=== PATIENT | male | born 1950 | race Caucasian/White ===

== ENCOUNTER 2021-01-04 16:57 | Inpatient (IN) | payer MEDICARE, SELFPAY ==
--- NOTE | ~2021-01-04 | XR_ITS ---
EXAMINATION: XR chest 1V portable EXAM DATE: 01/05/2021 09:34 INDICATION: History pneumonia. Shortness of breath, weakness, cough. TECHNIQUE: Portable AP frontal chest x-ray was obtained. There is no prior study for comparison. FINDINGS: There is confluent segmental right middle lobe consolidation, probably pneumonia. Can't exc lude underlying cancer, follow-up is indicated to resolution. There is left midlung zone granuloma. There is a right-sided PICC line which is kinked, buckling into the internal jugular vein, but with t ips remaining inferiorly at the mid SVC level. There is no pneumothorax suspected. There are no pleural effusions. Cardiomediastinal silhouette is n ormal. There are no osseous abnormalities identified. IMPRESSION: 1. Abnormally positioned right-sided PICC line. 2. Segmental right middle lobe consolidation, probably pneumonia. Follow-up to resolution to exclude underlying cancer. Reviewed, dictated and finalized at location A. L DETAILER
[2021-01-04 16:57] VITALS: BMI 31.4
[2021-01-04 17:00] VITALS: BP 118/78; PULSE 109; PULSE 110; RESP 18; TEMP 37.1; O2SAT 93
--- NOTE | 2021-01-04 18:22 | ADMGEN ---
This patient, FEI STEPHENS, was admitted to 2nd Floor Room 205-2. Patient/family oriented to hospital policies and general routines including ID bracelet, bed and alarms, visiting hours due to covid pandemic, pain management, procedures, bathroom and other care routines, personal items, smoking policy, room service/diet, and visiting hours. Information on how to activate the Rapid Response Team has been discussed. Patient/Family are encouraged to report perceived risks to care and to ask questions if they do not understand what they are told or what they should do.
--- NOTE | 2021-01-04 20:33 | PM.IMHP ---
H&P: HPI History of Present Illness Date/Time: 01/04/21 20:33 Chief Complaint: Weakness Narrative: 70-year-old white male presents to our hospital for generalized weakness after being intubated at [facility] for 2 weeks. He presented there with acute hypoxic respiratory failure, rapid atrial fibrillation, severe sepsis and bilateral pneumonia. Review of Systems Review of Systems: Patient complains of generalized weakness in all 4 extremities. He says he does not know why he is has so much weakness other than he has been on a ventilator for 2 weeks after having severe pneumonia. At this time he denies any significant pain. He just has difficulty with range of motion in all extremities. All systems reviewed & are unremarkable except as noted in HPI and below PMFSH Past Medical History Medical History (Updated 01/04/21 @ 21:16 by Dinesh Izaguirre MD) Paroxysmal atrial fibrillation Rheumatoid arthritis Surgical History Surgical History (Updated 01/04/21 @ 20:38 by Dinesh Izaguirre MD) H/O arthroscopic knee surgery Family History Family History Father Arthritis Heart attack Social History Social History Smoking status: Never smoker Second hand tobacco smoke exposure: No Alcohol intake: never Substance use: never Spiritual care concerns: No Meds Home Medications and Allergies Home Medications Medication Instructions Recorded Confirmed Type acetaminophen [Tylenol] 650 mg PO Q4H PRN 01/04/21 01/04/21 History artificial tears ointment [Refresh 1 applic EACH EYE HS 01/04/21 01/04/21 History P.M.] carboxymethylcellulose sodium 2 drp EACH EYE QID PRN 01/04/21 01/04/21 History dextromethorphan-guaifenesin 10 ml PO QID PRN 01/04/21 01/04/21 History [Robitussin-DM] docusate sodium [Colace] 100 mg PO BID 01/04/21 01/04/21 History enoxaparin 40 mg SUBCUT DAILY 01/04/21 01/04/21 History folic acid 1 mg PO DAILY 01/04/21 01/04/21 History gabapentin 300 mg PO HS 01/04/21 01/04/21 History hydrocodone-acetaminophen [Trent] 1 tablet PO QID PRN 01/04/21 01/04/21 History ipratropium-albuterol 3 ml INHALATION Q4H PRN 01/04/21 01/04/21 History magnesium oxide 400 mg PO TIDWMEAL 01/04/21 01/04/21 History mirtazapine 15 mg PO HS 01/04/21 01/04/21 History pantoprazole 40 mg PO QAM 01/04/21 01/04/21 History polyethylene glycol 3350 [Miralax] 17 g PO BID 01/04/21 01/04/21 History prednisone [Deltasone] 5 mg PO DAILY 01/04/21 01/04/21 History tramadol 50 mg PO DAILY 01/04/21 01/04/21 History Allergies Allergy/AdvReac Type Severity Reaction Status Date / Time sulfadiazine Allergy Vomiting Verified 01/04/21 17:10 Vital Signs Vital Signs - 24 hr 01/04/21 17:00 Temperature 37.1 C Pulse Rate 109 H Respiratory Rate 18 Blood Pressure 118/78 Pulse Oximetry 93 Exam Const: General: comfortable and no acute distress Eyes: General: appearance normal, both eyes and all related structures Sclera: sclerae normal Pupils: Equal, round and reactive pupils present EOM: EOMs intact bilaterally Neck: Neck: supple and no JVD Resp: Effort & Inspection: normal respiratory effort Auscultation: clear to auscultation bilaterally Cardio: Rate: regular rate Rhythm: regular rhythm Heart sounds: no murmurs GI: Inspection: non-distended GI Palp: Yes Soft to palpation, No Tenderness to palpation present (GI) and No Guarding due to palpation present (GI) Auscultation: normal bowel sounds Back/Spine/Pelvis: Cervical Spine: cervical ROM normal Skin: General skin exam: normal color and no rashes or lesions noted Neuro: Cognition (Neuro): normal cognition Speech: normal speech Motor exam (neuro): Motor abnormalites present other ( generalized weakness and has extremities with difficulty and range of motion hand to mouth.) Extrem: General: normal to inspection and no edema Other: Able to move al
[2021-01-04] MEDS: MIRTAZAPINE 15 MG TABLET PO (21:42)
[2021-01-04] MEDS: guaiFENesin/DEXTROMETHORPHAN 5 ML UDC 10 ML PO (21:42)
[2021-01-04] MEDS: MINERAL OIL/PETROLATUM OPHTH OINT 3.5 GM (EYE LUBRICANT) 1 APPLIC EACH EYE (21:42)
[2021-01-04] MEDS: GABAPENTIN 300 MG CAPSULE PO (21:42)
--- NOTE | 2021-01-04 21:51 | PC.NURSE ---
Incontinent of soft stool, poor bed mobility, complete assist to turn and position self
[2021-01-04 23:56] VITALS: BP 111/70; PULSE 103; RESP 20; TEMP 37.7; O2SAT 93
[2021-01-05 05:28] LABS: Mean Platelet Volume 9.2 fl (8.7-11.0); Platelet Count Result 231 K/mm3 (150-420)
[2021-01-05 05:38] LABS: Estimated CRCL calculation 45 ml/min; Estimated Glomerular Filt Rate 37
[2021-01-05 07:30] VITALS: BMI 10.0
--- NOTE | 2021-01-05 07:47 | ECG_ITS ---
Measurements Intervals [place] Rate: 134 P: 106 LA: 125 QRS: 106 QRSD: 94 T: 179 QT: 298 QTc: 445 Interpretive Statements SINUS TACHYCARDIA RIGHT AXIS DEVIATION EARLY PRECORDIAL R/S TRANSITION BORDERLINE T WAVE ABNORMALITY- INF/LAT LEADS BASELINE ARTIFACT- I, II, III ABNORMAL ECG Electronically Signed On 01-05-2021 8:58:27 STOCK BROKER by Cuauhtemoc Kraus D.O.
[2021-01-05 07:54] LABS: Hematocrit 24.9 % (37.0-46.0); Hemoglobin 7.9 g/dL (12.4-15.3); Mean Corpuscular HGB Conc 31.7 g/dL (32.0-36.0); Mean Corpuscular Hemoglobin 33.3 pg (27.0-31.0); Mean Corpuscular Volume 105.1 fL (78.0-102.0); Mean Platelet Volume 9.3 fl (8.7-11.0); Platelet Count Result 248 K/mm3 (150-420); Red Blood Count 2.37 M/mm3 (4.70-6.10); Red Cell Distribution Width 13.2 % (11.6-14.4); White Blood Count 7.9 K/mm3 (4.8-10.8)
[2021-01-05 08:00] VITALS: BP 103/64; PULSE 115; RESP 20; TEMP 36.9; O2SAT 91
[2021-01-05 08:10] VITALS: BMI 10.0
[2021-01-05 08:10] LABS: Alanine Aminotransferase 27 U/L (16-63); Albumin Level 1.8 g/dL (3.4-5.0); Alkaline Phosphatase 145 U/L (46-116); Anion Gap 10 mmol/L (8-16); Aspartate Amino Transferase 18 U/L (15-37); Bilirubin,Total 0.6 mg/dL (0.00-1.00); Blood Urea Nitrogen 28 mg/dL (7-18); Calcium 8.1 mg/dL (8.5-10.1); Carbon Dioxide 29 mmol/L (21-32); Chloride 100 mmol/L (98-108); Estimated CRCL calculation 45 ml/min; Estimated Glomerular Filt Rate 36; Glucose 104 mg/dL (70-99); NT Pro B Type Natriuretic Pept 659 pg/mL (0-125); Osmolality Calculated 293 mOsm/kg (285-295); Potassium 4.2 mmol/L (3.5-5.1); Sodium 139 mmol/L (136-145); Total Protein 6.5 g/dL (6.4-8.2)
[2021-01-05 08:42] LABS: Troponin I 27.1 ng/L (0.00-60.4)
[2021-01-05] MEDS: polyethylene glycoL 3350 17 GM POWD.PACK PO (09:01)
[2021-01-05] MEDS: ONDANSETRON INJ 4 MG/2 ML VIAL IV PUSH (09:02)
[2021-01-05] MEDS: DOCUSATE SODIUM 100 MG CAPSULE PO (09:06)
[2021-01-05] MEDS: FOLIC ACID 1 MG TABLET PO (09:06)
[2021-01-05] MEDS: predniSONE 5 MG TABLET PO (09:06)
[2021-01-05] MEDS: MAGNESIUM OXIDE 400 MG TABLET PO ×2 (09:07→11:22)
[2021-01-05] MEDS: PANTOPRAZOLE 40 MG TABLET PO (09:07)
[2021-01-05] MEDS: traMADol HCL (*CRX) 50 MG TABLET PO (09:07)
[2021-01-05 09:25] LABS: Base Excess ABG 2.8 mmol/L (0-2); HCO3 ABG 26.4 mmol/L (23-29); Oxygen Saturation ABG 94.7 % (95-97); Oxyhemoglobin 93.9 % (94-100); PCO2 ABG 36.9 mmHg (35-45); PO2 ABG 78.4 mmHg (75-85); Total Hemoglobin 11.3 g/dL (12.0-18.0); pH ABG 7.47 (7.35-7.45)
[2021-01-05 09:27] LABS: Device NASAL CANNULA; Modified Allen's Test Pass; Site Drawn LEFT RADIAL
[2021-01-05 11:10] LABS: SARS-CoV-2 Ag Negative (Negative)
[2021-01-05 11:22] VITALS: PULSE 120
[2021-01-05] MEDS: METOPROLOL TARTRATE 6.25 MG TABLET PO (11:22)
[2021-01-05] MEDS: ENOXAPARIN 40 MG/0.4 ML SYRINGE SUB-Q (11:30)
[2021-01-05 11:44] VITALS: PULSE 120; RESP 20; O2SAT 95
--- NOTE | 2021-01-05 12:23 | PC.NURSE ---
Room assignment obtained at [facility]
--- NOTE | 2021-01-05 12:29 | PM.SD2 ---
Same Day Admit/Disch: HPI History of Present Illness Chief complaint: REHAB Narrative: FEI STEPHENS is a 70 year old male that arrived to our swing bed after being discharged from [facility]. Patient has a past medical history of A. fib, rheumatoid arthritis. Patient was admitted at [facility] 12/16/20 at that time he was placed on a chronic ventilator for respiratory failure. According to notes patient was placed on doxycycline and Rocephin and Zithromax Rocephin was later discontinued and he was started on cefepime due to bilateral pneumonia and sepsis. While hospitalized patient was diagnosed with A. fib after reviewing the notes I read where patient cardioverted to sinus rhythm and amiodarone was discontinued his EKG showed mild ST elevation in lead I to II and his troponin did not increase. It was unclear whether the patient was started on a beta-ignacio Lovenox was used for anticoagulant. After talking with his I was informed that patient was on a beta-ignacio and then was discontinued because his heart rate dropped too low and while he was at the hospital he was taken Lovenox. On discharge patient was not prescribed any anticoagulant or beta-ignacio. This day patient heart rate jumped in the 140s and remain between 120 and 140 EKG indicated sinus tach with a heart rate of 138. Patient did receive metoprolol 6.25 mg. A a chest x-ray was completed which indicated possible pneumonia, WBC 7.9 hemoglobin 7.9, hematocrit 24.9 platelets 248 ABG pH 7.47 CO2 36.9 O2 78.4 bicarb 26.4, sodium 139, 4.2 BUN 28 creatinine 1.86 glucose 104, BUN 659 Covid negative. After discussing situation with she did request that the patient be sent to the [facility] in [place] where his primary care physician have privileges. Patient has been accepted by Dr. Perera and Nell. Antibiotics was not started on patient per hospitalist conversation. Patient will get his blood cultures and start antibiotic at that facility. I have discussed the transfer with his and patient and both agrees that patient should be discharged to a higher level of care for specialty consult with professor of music and box maker due to worsening renal function he will more than likely need a film casting operator as well. Patient is not suitable for our swing bed and will transfer to a higher level of care. Patient did note while completing physical therapy this morning he felt really bad. Patient heart rate increased into 140 and he experienced nausea and vomiting. [facility] Past Medical History Medical History (Updated 01/05/21 @ 12:41 by DANETTE Del Toro) Paroxysmal atrial fibrillation Rheumatoid arthritis Surgical History Surgical History (Updated 01/04/21 @ 20:38 by Dinesh Izaguirre MD) H/O arthroscopic knee surgery Family History Family History Father Arthritis Heart attack Social History Social History Smoking status: Never smoker Second hand tobacco smoke exposure: No Alcohol intake: never Substance use: never Spiritual care concerns: No Same Day Admit/Disch: Med Pre-admit Medications Home Medications Medication Instructions Recorded Confirmed Type acetaminophen [Tylenol] 650 mg PO Q4H PRN 01/04/21 01/04/21 History artificial tears ointment 1 applic EACH EYE HS 01/04/21 01/04/21 History carboxymethylcellulose sodium 2 drp EACH EYE QID PRN 01/04/21 01/04/21 History dextromethorphan-guaifenesin 10 ml PO QID PRN 01/04/21 01/04/21 History docusate sodium [Colace] 100 mg PO BID 01/04/21 01/04/21 History enoxaparin 40 mg SUBCUT DAILY 01/04/21 01/04/21 History folic acid 1 mg PO DAILY 01/04/21 01/04/21 History gabapentin 300 mg PO HS 01/04/21 01/04/21 History hydrocodone-acetaminophen 1 tablet PO QID PRN 01/04/21 01/04/21 History ipratropium-albuterol 3 ml INHALATION Q4H PRN 01/04/21 01/04/21 History magnesium oxide 400 mg PO TIDWMEAL 01/04/21 01/04/21
--- NOTE | 2021-01-05 12:57 | PC.NURSE ---
Patient being transferred to [facility]. [place] providing transport with all personal belongings bagged up and sent with patient. Spouse notified of transfer and room number. Report given to Nurse Chase at [facility].
--- NOTE | 2021-01-05 13:40 | PC.NURSE ---
Patient discharged to [facility] EMT present to transport and has left with patient and personal belongings sent with patient.
== END 2021-01-05 13:40 | disposition short-term general hospital (02) | DRG 947 ==
PROVIDERS: Nurse Practitioner; Admitting Provider Emergency Medicine; Visit Provider Emergency Medicine
DX: R53.1 Weakness (principal); J18.9 Pneumonia, unspecified organism; I48.0 Paroxysmal atrial fibrillation; M06.9 Rheumatoid arthritis, unspecified; R00.0 Tachycardia, unspecified; Z20.822 Contact with and (suspected) exposure to COVID-19
CPT/HCPCS: 36415; 36600; 71045; 80053; 82565; 82805; 83880; 84484; 85027; 85049; 87426; 93005; 97162; 97165; A9270; C9803; J1650; J2405; J7512